=== PATIENT | male | born 1985 | race African-American/Black ===

== ENCOUNTER → 2019-08-19 | Outpatient (CLI) | payer OTHER ==
[~2019-08-19] MED LIST: CONTRAST GIVEN. MC PRN; IOHEXOL 240 MG/ML 50ML VIAL. IV ONE; IOHEXOL 300 MG/ML 100ML VIAL. IV ONE
--- NOTE | 2019-08-19 12:00 | RAD ---
EXAM: Abdomen and pelvis CT with intravenous contrast. HISTORY: Pain. TECHNIQUE: Computed tomographic images of the abdomen and pelvis were obtained following the administration of 75 cc Omnipaque 300 intravenous contrast. Multiplanar reformatting was performed. *One or more of the following individualized dose reduction techniques were utilized for this examination: 1. Automated exposure control. 2. Adjustment of the mA and/or kV according to patient size. 3. Use of iterative reconstruction technique. COMPARISON: None. FINDINGS: Evaluation of the lower thorax demonstrates a partially calcified nodule within the posterior lateral left lower lobe measuring 8 mm, likely a granuloma. There is no infiltrate or pleural effusion. There is hepatic steatosis. No focal hepatic lesion is seen. The gallbladder, pancreas, and adrenal glands are unremarkable. There are few splenic granulomas. There is a 7 mm cortical cyst within the left kidney. There is no hydronephrosis. There is no appendicitis. There is no bowel obstruction. There is mild colonic wall thickening likely due to the collimation of nondistention and increased colonic wall fat, a finding which can be seen as a sequela of prior inflammation. There is no convincing acute colitis. There are calcifications within the prostate. The urinary bladder is unremarkable. There are sclerotic lesions within the bilateral iliac bones, measuring 1.5 cm on the left and 1.4 cm on the right. There is an incidental synovial herniation pit at the left femoral head-neck junction. IMPRESSION: 1. Suspected hepatic steatosis. 2. Mild colonic wall thickening likely due to relative under distention and increased colonic wall fat, a finding which can be seen as a sequela of prior inflammation. There is no convincing acute colitis. 3. Small left renal cyst. 4. Sclerotic lesions within the bilateral iliac bones. In the absence of known malignancy, these are likely bone islands. Electronically signed by: Iva Miller MD (08/19/2019 11:57 AM) [id number]
== END | disposition home or self-care (01) ==
LOC: CT 10:07
PROVIDERS: ATTEND Family Medicine
DX: N28.1 Cyst of kidney, acquired (principal); K76.0 Fatty (change of) liver, not elsewhere classified; M89.8X9 Other specified disorders of bone, unspecified site; D73.89 Other diseases of spleen; N42.89 Other specified disorders of prostate; R91.1 Solitary pulmonary nodule
CPT/HCPCS: 74177; Q9966; Q9967